=== PATIENT | male | born 1985 | race Caucasian/White ===

== ENCOUNTER 2021-08-30 10:37 | Outpatient (CLI) | payer BC, SELFPAY | END 2021-08-30 10:38 | disposition home or self-care (01) | LOC: SCSRAD 10:37 | PROVIDERS: ATTEND Chiropractor | DX: M54.6 Pain in thoracic spine (principal); M47.814 Spondylosis without myelopathy or radiculopathy, thoracic region | CPT/HCPCS: 72072 ==